=== PATIENT | female | born 1985 ===

== ENCOUNTER 2019-05-03 15:42 | Emergency (ER) | payer MEDICAID ==
[~2019-05-03] VITALS: Ht 167.6 cm; Wt 74.8 kg
--- NOTE | 2019-05-03 15:54 | NUR ---
LWBT - PT CHANGED HER MIND ABOUT BEING SEEN - STATES SHE WILL CALL HER DOCTOR INSTEAD.
--- NOTE | 2019-05-03 16:03 | NUR ---
PT CAME BACK AND STATES SHE CHANGED HER MIND AND REQUESTED TO BE SEEN Patient is AOx4, speaking in complete sentences, speech is clear. Patient is able to follow /comprehend directions. Gait is stable. No cardiovascular distress noted. Rate and rhythm are regular. No CP. No respiratory distress noted. Respirations even & unlabored with symmetrical chest rise. No adventitious sounds noted. Chief complaint: C/O COUGHING X2DAYS Patient denies Fever/Chills. No recent travel. No pertinent medical history/NKDA. - ETOH / -recreational drug use/ NONSMOKER. ERMD AT BEDSIDE FOR HX AND PHYSICAL MONITORED ACCORDINGLY
--- NOTE | 2019-05-03 16:20 | NUR ---
Patient discharged to home in stable conditon. Written and verbal after care instructions given. Patient verbalizes understanding of instructions. AMBULATORY W/ STABLE GAIT ALL BELONGINGS W/ PT
[2019-05-03 16:21] VITALS: BP 125/90
== END 2019-05-03 16:40 | disposition home or self-care (01) ==
LOC: ER 15:46
DX: J06.9 Acute upper respiratory infection, unspecified (principal); R51 Headache; R05 Cough; Z60.2 Problems related to living alone
CPT/HCPCS: A4663

== ENCOUNTER 2019-05-06 05:46 | Emergency (ER) | payer MEDICAID ==
[~2019-05-06] VITALS: Ht 167.6 cm; Wt 74.8 kg
--- NOTE | 2019-05-06 06:10 | NUR ---
AT BEDSIDE FOR MSE
--- NOTE | 2019-05-06 06:23 | NUR ---
Patient discharged to home in stable conditon. Written and verbal after care instructions given. Patient verbalizes understanding of instructions. Pt ambulated out of ER with stable gait. No acute distress noted.
[2019-05-06 06:24] VITALS: BP 123/77
== END 2019-05-06 06:25 | disposition home or self-care (01) ==
LOC: ER 05:51
DX: Z00.00 Encounter for general adult medical examination without abnormal findings (principal); R06.02 Shortness of breath; Z79.899 Other long term (current) drug therapy
CPT/HCPCS: A4663

== ENCOUNTER 2019-05-10 16:37 | Emergency (ER) | payer MEDICAID ==
[~2019-05-10] VITALS: Ht 167.6 cm; Wt 74.8 kg
--- NOTE | 2019-05-10 16:58 | NUR ---
PT IS A/OX4, PRESENTS TO THE ED C/O SOB. PT IS VISIBLY ANXIOUS AND RESTLESS. UPON ASSESSMENT, SPO2 100% ON ROOM AIR. PT REPORTS HX OF DEPRESSION AND ANXIETY, FOR WHICH SHE IS ON MEDICATION. PT STATES SHE WAS TESTED POSITIVE FOR THE COVID-19 ON 05/05/2019 AND SINCE HAS BEEN UNDER SELF-QUARANTINE. 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 UPON HEARING HER SPO2 LEVEL IS 100%, PT IS NOW CALM. VSS.
--- NOTE | 2019-05-10 17:16 | NUR ---
Patient discharged to home in stable conditon. Written and verbal after care instructions given. Patient verbalizes understanding of instructions. All belongings w/ pt. pt self-ambulated w/o difficulty.
[2019-05-10 17:17] VITALS: BP 132/76
--- NOTE | 2019-05-10 17:17 | NUR ---
pt instructed to continue self-quarantine at home.
== END 2019-05-10 17:18 | disposition home or self-care (01) ==
LOC: ER 16:40
DX: B97.29 Other coronavirus as the cause of diseases classified elsewhere (principal); J22 Unspecified acute lower respiratory infection
CPT/HCPCS: A4663

== ENCOUNTER 2020-04-04 20:33 | Emergency (ER) | payer SELFPAY ==
[~2020-04-04] VITALS: Ht 170.2 cm; Wt 68.0 kg
[~2020-04-04 20:33] MED LIST: FLUO20CA36 PO; LAMO150T2 PO
--- NOTE | 2020-04-04 20:42 | NUR ---
Patient ambulated with steady gait, utilizing a cane. A/Ox4. Patient came for c/o right breast injury. Patient believes that it may be possible her right breast implant has ruptured from a s/p dog bite on Thursday. Patient was instructed to come and get an MRI. Breast appears bruised on the inferior aspect.
--- NOTE | 2020-04-04 20:48 | NUR ---
Female shortage worker accompanied female patient for Dr. Washington.
[2020-04-04] MEDS ORDERED: AMOXICILLIN-CLAVUL 875-125MG TABLET PO ONE (21:00)
[2020-04-04] MEDS ORDERED: CEFTRIAXONE 1 G VIAL IM ONE (21:00)
[2020-04-04] MEDS ORDERED: AMOX-430 PO (21:07)
[2020-04-04] MEDS ORDERED: OXYC-128 PO (21:07)
--- NOTE | 2020-04-04 21:17 | NUR ---
Knee immobilizer applied with CMS in tact. Crutch training provided to patient, and patient was able to fully adapt with proper instructions. Patient discharged to home in stable condition. Written and verbal after care instructions given. Patient verbalizes understanding of instructions. Stressed follow up or return to ER for worsening s/s. Patient A/OX4, able to ambulate well with the use of crutches. All belongings returned to patient prior to departure.
[2020-04-04 21:30] VITALS: BP 129/57
== END 2020-04-04 21:30 | disposition home or self-care (01) ==
LOC: ER 20:34
DX: S83.92XA Sprain of unspecified site of left knee, initial encounter (principal); W18.30XA Fall on same level, unspecified, initial encounter; Y92.89 Other specified places as the place of occurrence of the external cause; T85.898A Other specified complication of other internal prosthetic devices, implants and grafts, initial encounter; Z98.82 Breast implant status; F41.9 Anxiety disorder, unspecified; F32.9 Major depressive disorder, single episode, unspecified; Z79.899 Other long term (current) drug therapy
CPT/HCPCS: 96372; 99283; J0696; J3490; A4663